=== PATIENT | male | born 1970 | race Caucasian/White ===

== ENCOUNTER 2017-08-25 13:00 | Outpatient (RCR) ==
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
--- NOTE | 2017-08-13 14:20 | RS.OPPTDN ---
Subjective Date of Note: 08/13/17 Visit #: 2 Date of Evaluation: 08/11/17 Payer Source: Insurance Treatment Diagnosis: L clavicle fx, L scapular fx, L sup and inf pubic ramus fx , L 1-7 rib fx. Current Subjective/complaints:: Reports feeling pressure in the L side of his body , especially the ribs upon getting up from lying down to sit. *Precautions: NWB LUE, WBAT LLE Pain Assessment - Pain Description Pain Description: Tightness Current Pain Intensity: not rated Interventions - Exercise/Activities/Manual Therapy Exercises/Activities: 45 mins. total of 3/10 -15 reps. each of ankle DF/PF with yellow theraband,SAQ' s with 4#,heelslides , hip abd/add , and SLR's with no resistance.Isometric hip abd /add using small therapy ball in hooklying position. Total minutes of Exercise: 45 Manual Therapy: n/a Total minutes of Manual Therapy: 0 HOME EXERCISE PROGRAM: pt given written HEP including AP, LAQ, seated hip flex, hip abd/add, isometric add, HS - Charges Timed Code Treatment Minutes: 45 Total Treatment Time: 45 Procedures billed for this date of service:: ex 3 Short Term Goals Goal #1: pt amb in dept with cane with no LOB and improved heel strike/toe off. Goal to be met by: 08/25/17 Progress towards Goal:: Progressing Goal #2: pt rate pain <5/10 with activity Goal to be met by: 08/25/17 Goal #3: pt transfer sup to/from sit SBA with less pain and difficulty. Goal to be met by: 08/25/17 [facility] Goals Goal #1: pt rate pain <4/10 with activity Goal to be met by: 09/10/17 Goal #2: pt demonstrate improved dyn stand balance as noted by tinetti score 22/ 28 Goal to be met by: 09/10/17 Goal #3: pt with improved strength BLE 4 to 4+/5 and independent with HEP Goal to be met by: 09/10/17 Goal #4: pt with improved LE functional score > 50 Goal to be met by: 09/10/17 Plan PLAN OF CARE EXPIRES ON:: 09/11/17 ORDER # VISITS AND/OR THROUGH DATE: 1/5/17 PLAN: Continue PT to decrease pain ,increase LE strength for improved transfers and gait.
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
--- NOTE | 2017-08-17 15:18 | RS.OPPTDN ---
Subjective Date of Note: 08/17/17 Visit #: 3 Date of Evaluation: 08/11/17 Payer Source: Insurance Treatment Diagnosis: L clavicle fx, L scapular fx, L sup and inf pubic ramus fx , L 1-7 rib fx. Current Subjective/complaints:: Patient reports no elevated pain or soreness after last PT session.He continues to have the most difficulty with supine to sit transfers. *Precautions: NWB LUE, WBAT LLE Pain Assessment - Pain Description Pain Description: Tightness Pain Description: "pressure " Interventions - Exercise/Activities/Manual Therapy Exercises/Activities: 45 mins. total ,beginning with supine exercises of hamstring stretches,LTR,isometric hip flex/abd/add.Progressed to 11/19 using both LE's on seated leg press @ 90 #,185 #, and 210 #.HEP review. Total minutes of Exercise: 45 Manual Therapy: n/a Total minutes of Manual Therapy: 0 HOME EXERCISE PROGRAM: pt given written HEP including AP, LAQ, seated hip flex, hip abd/add, isometric add, HS - Charges Timed Code Treatment Minutes: 45 Total Treatment Time: 45 Procedures billed for this date of service:: ex 3 Assessment: Tolerates exercises well,reports pressure and tightness as he fatigues,but no sharp pain present during treatment.He is motivated to improve and very attentive to recommendations.He has good understanding of avoiding the ,"no pain,no gain theory", due to his current injuries and restrictions. Patient Education: Education of diagnosis, Body/Joint mechanics, Home Exercise Program, Home Safety, Activity Modification, Education of Plan of Care Patient demonstrates compliance with HEP?: Yes Short Term Goals Goal #1: pt amb in dept with cane with no LOB and improved heel strike/toe off. Goal to be met by: 08/25/17 Progress towards Goal:: Partially Met Goal #2: pt rate pain <5/10 with activity Goal to be met by: 08/25/17 Progress towards Goal:: Progressing Goal #3: pt transfer sup to/from sit SBA with less pain and difficulty. Goal to be met by: 08/25/17 Progress towards Goal:: No Change Personal Property Assessor Goals Goal #1: pt rate pain <4/10 with activity Goal to be met by: 09/10/17 Goal #2: pt demonstrate improved dyn stand balance as noted by tinetti score 22/ 28 Goal to be met by: 09/10/17 Progress towards goal: Progressing Goal #3: pt with improved strength BLE 4 to 4+/5 and independent with HEP Goal to be met by: 09/10/17 Goal #4: pt with improved LE functional score > 50 Goal to be met by: 09/10/17 Plan PLAN OF CARE EXPIRES ON:: 08/17/17 ORDER # VISITS AND/OR THROUGH DATE: 09/11/16 PLAN: Continue PT to increase core and LE strength ,reduce pain for ADL's.
--- NOTE | 2017-08-20 14:30 | RS.OPPTDN ---
Subjective Date of Note: 08/20/17 Visit #: 4 Date of Evaluation: 08/11/17 Payer Source: Insurance Treatment Diagnosis: L clavicle fx, L scapular fx, L sup and inf pubic ramus fx , L 1-7 rib fx. Current Subjective/complaints:: No c/o.He reports the rib pain is slowly lessening,and this makes the supine to sit transfers less difficult. *Precautions: NWB LUE, WBAT LLE Pain Assessment - Pain Description Pain Location: L ribs and UE Current Pain Intensity: not rated Other Comments regarding Pain:: no LE pain Interventions - Exercise/Activities/Manual Therapy Exercises/Activities: 15 mins. on bike then 45 mins. ,beginning with supine exercises of hamstring stretches,LTR,isometric hip flex/abd/add.Progressed to using both LE's on seated leg press @ 90 #,185 #, and 210 #.HEP review.Standing mni-squats on trampoline,10/22. Total minutes of Exercise: 45 Manual Therapy: n/a Total minutes of Manual Therapy: 0 HOME EXERCISE PROGRAM: pt given written HEP including AP, LAQ, seated hip flex, hip abd/add, isometric add, HS - Charges Timed Code Treatment Minutes: 45 Total Treatment Time: 60 Procedures billed for this date of service:: ex 3 Assessment: Patient tolerates resistive exercises well,repoprts only fatigue in the LE's.He demos good balance on trampoline and level surfaces.His LE strength is improving,with the R LE minimally stronger than the R.He has better hamstring exyensibility afterv stretches,with full extension of the knees. Patient Education: Education of diagnosis, Body/Joint mechanics, Home Exercise Program, Home Safety, Activity Modification, Education of Plan of Care Patient demonstrates compliance with HEP?: Yes Short Term Goals Goal #1: pt amb in dept with cane with no LOB and improved heel strike/toe off. Goal to be met by: 08/25/17 Progress towards Goal:: Partially Met Goal #2: pt rate pain <5/10 with activity Goal to be met by: 08/25/17 Progress towards Goal:: Partially Met Goal #3: pt transfer sup to/from sit SBA with less pain and difficulty. Goal to be met by: 08/25/17 Progress towards Goal:: Progressing Shelter Goals Goal #1: pt rate pain <4/10 with activity Goal to be met by: 09/10/17 Progress towards goal: Progressing Goal #2: pt demonstrate improved dyn stand balance as noted by tinetti score Goal to be met by: 09/10/17 Progress towards goal: Progressing Goal #3: pt with improved strength BLE 4 to 4+/5 and independent with HEP Goal to be met by: 09/10/17 Progress towards goal: Progressing Goal #4: pt with improved LE functional score > 50 Goal to be met by: 09/10/17 Plan PLAN OF CARE EXPIRES ON:: 09/11/17 ORDER # VISITS AND/OR THROUGH DATE: 09/11/16 PLAN: Contine PT to achieve maximum LE strength,relieve pain ,return to PLOF.
--- NOTE | 2017-08-25 10:24 | RS.OTCNOTE ---
OT Case Note Date of Note: 08/25/17 Title: New Doctor Orders Note: Physician Clocksmith sent a new order from Doctor progressing Jon Neumann AROM of shoulder to 90 degrees forward flexion, abduction , no overhead yet.
--- NOTE | 2017-08-25 14:19 | RS.OPPTDN ---
Subjective Date of Note: 08/25/17 Visit #: 5 Date of Evaluation: 08/11/17 Payer Source: Insurance Treatment Diagnosis: L clavicle fx, L scapular fx, L sup and inf pubic ramus fx , L 1-7 rib fx. Current Subjective/complaints:: No c/o , regarding the legs,and the ribs continue to slowly feel better.He feels he can continue the PT exercises on his own now,asking about D/C plans. *Precautions: NWB LUE, WBAT LLE Pain Assessment - Pain Description Current Pain Intensity: 0 at rest. Interventions - Exercise/Activities/Manual Therapy Exercises/Activities: 15 mins. on bike then 45 mins. ,beginning with supine exercises of hamstring stretches,LTR,isometric hip flex/abd/add.Progressed to 15 using both LE's on seated leg press @ 90 #,185 #, and 210 #.HEP review. Total minutes of Exercise: 60 Manual Therapy: n/a HOME EXERCISE PROGRAM: pt given written HEP including AP, LAQ, seated hip flex, hip abd/add, isometric add, HS - Charges Timed Code Treatment Minutes: 45 Total Treatment Time: 60 Procedures billed for this date of service:: ex3 Assessment: All rehab goals met.good understanding of exercises,no loss of balance with gait ,tolerates single leg stance activity without leg pain or rib pain. Patient Education: Education of Plan of Care Patient demonstrates compliance with HEP?: Yes Short Term Goals Goal #1: pt amb in dept with cane with no LOB and improved heel strike/toe off. Goal to be met by: 08/25/17 Progress towards Goal:: Met Goal #2: pt rate pain <5/10 with activity Goal to be met by: 08/25/17 Progress towards Goal:: Met Goal #3: pt transfer sup to/from sit SBA with less pain and difficulty. Goal to be met by: 08/25/17 Progress towards Goal:: Met Halfway Goals Goal #1: pt rate pain <4/10 with activity Goal to be met by: 09/10/17 Progress towards goal: Met Goal #2: pt demonstrate improved dyn stand balance as noted by tinetti score 22/ 28 Goal to be met by: 09/10/17 Progress towards goal: Met Goal #3: pt with improved strength BLE 4 to 4+/5 and independent with HEP Goal to be met by: 09/10/17 Progress towards goal: Met Goal #4: pt with improved LE functional score > 50 Goal to be met by: 09/10/17 (N/A due to normal strength and no loss of balance with any activity) Plan PLAN OF CARE EXPIRES ON:: 09/11/17 ORDER # VISITS AND/OR THROUGH DATE: 09/11/16 PLAN: D/C
== END 2017-09-06 ==
PROVIDERS: ATTEND Orthopaedic Surgery
DX: S42.112A Displaced fracture of body of scapula, left shoulder, initial encounter for closed fracture (principal); S42.022A Displaced fracture of shaft of left clavicle, initial encounter for closed fracture; S49.82XA Other specified injuries of left shoulder and upper arm, initial encounter; S32.512A Fracture of superior rim of left pubis, initial encounter for closed fracture; S32.592A Other specified fracture of left pubis, initial encounter for closed fracture; S22.32XA Fracture of one rib, left side, initial encounter for closed fracture